=== PATIENT | female | born 1935 | race Caucasian/White ===

== ENCOUNTER 2021-11-21 09:56 | Observation (INO) | payer OTHER, MEDICARE ==
[2021-11-21 12:09] LABS: BASO % 0.4 % (0-2.0); HEMATOCRIT 25.4 % (32.4-45.2); HEMOGLOBIN 8.7 GM/dL (10.7-15.3); LYMPH % 14.4 % (8-40); MCH 31.4 pg (25.7-33.7); MCHC 34.3 g/dl (32.0-36.0); MEAN CELL VOLUME 91.6 fl (80-96); MEAN PLT VOLUME 8.4 fl (7.5-11.1); MONO % 7.3 % (3.8-10.2); NEUT % 75.9 % (42.8-82.8); PLATELET COUNT 248 10^3/uL (134-434); RBC 2.78 M/mm3 (3.60-5.2); RDW 17.2 % (11.6-15.6); WHITE BLOOD COUNT 8.1 K/mm3 (4.0-10.0)
[2021-11-21 12:27] LABS: CALCIUM 11.2 mg/dL (8.5-10.1)
[2021-11-21 12:28] LABS: ALBUMIN 3.1 g/dl (3.4-5.0)
[2021-11-21 12:31] LABS: BLOOD UREA NITROGEN 103.3 mg/dL (7-18)
[2021-11-21 12:32] LABS: BILIRUBIN,TOTAL 0.4 mg/dL (0.2-1); CREATININE 4.4 mg/dL (0.55-1.3); TOT PROT 6.4 g/dl (6.4-8.2)
[2021-11-21] MEDS: SODIUM CHLORIDE 1,000 ML IV SCH (21:35)
[2021-11-21] MEDS: LIDOCAINE PATCH REMOVAL MC SCH (23:11)
[2021-11-21] MEDS: LIDOCAINE 5% TOPICAL PATCH TP SCH (23:11)
[2021-11-21] MEDS: HEPARIN NA (PORCINE) 5,000 UNITS/ML 1ML VIAL SQ SCH (23:12)
[2021-11-22] MEDS: HEPARIN NA (PORCINE) 5,000 UNITS/ML 1ML VIAL SQ SCH ×3 (05:30→21:02)
[2021-11-22] MEDS: SODIUM CHLORIDE 1,000 ML IV SCH ×2 (06:58→18:57)
[2021-11-22 08:43] VITALS: BMI 27.1
[2021-11-22 10:19] LABS: HEMATOCRIT 22.3 % (32.4-45.2); HEMOGLOBIN 7.5 GM/dL (10.7-15.3); MCH 30.6 pg (25.7-33.7); MCHC 33.5 g/dl (32.0-36.0); MEAN CELL VOLUME 91.4 fl (80-96); MEAN PLT VOLUME 8.3 fl (7.5-11.1); PLATELET COUNT 237 10^3/uL (134-434); RBC 2.44 M/mm3 (3.60-5.2); RDW 16.9 % (11.6-15.6); WHITE BLOOD COUNT 6.3 K/mm3 (4.0-10.0)
[2021-11-22] MEDS: ACETAMINOPHEN 325 MG TABLET (FP) PO PRN ×2 (11:10→21:02)
[2021-11-22] MEDS: LIDOCAINE 5% TOPICAL PATCH TP SCH (11:11)
[2021-11-22 11:16] LABS: CHLORIDE 104 mmol/L (98-107); SODIUM 140 mmol/L (136-145)
[2021-11-22 11:19] LABS: CALCIUM 10.5 mg/dL (8.5-10.1)
[2021-11-22 11:20] LABS: ANION GAP 6 MMOL/L (8-16); CO2 30 mmol/L (21-32); GLUCOSE,RANDOM 85 mg/dL (74-106)
[2021-11-22 11:21] LABS: MAGNESIUM 2.7 mg/dL (1.8-2.4)
[2021-11-22 11:23] LABS: CREATININE 4.6 mg/dL (0.55-1.3); IRON SERUM 73 ug/dL (50-175); PHOSPHOROUS 2.9 mg/dL (2.5-4.9)
[2021-11-22 11:24] LABS: TOTAL IRON BINDING CAPACITY 218 ug/dL (250-450)
[2021-11-22 11:35] LABS: ANISOCYTOSIS 0; HELMET CELLS 0; HOWELL-JOLLY BODIES 0; MACROCYTOSIS 0; OVALOCYTE 0; ROULEAU 0; SICKELED CELLS 0; TARGET CELLS 0; TEAR DROP CELLS 0; TOXIC GRANULATION 0
[2021-11-22 11:37] LABS: BLOOD UREA NITROGEN 113.6 mg/dL (7-18)
[2021-11-22] MEDS: ALBUMIN HUMAN 25% 12.5 GM/50 ML VIAL IV SCH ×4 (13:30→15:00)
[2021-11-22] MEDS ORDERED: SODIUM CHLORIDE 250 ML IV PRN (13:57)
[2021-11-22] MEDS ORDERED: EPOETIN ALFA-EPBX 10,000 UNIT/ML VIAL SQ ONE (14:00)
[2021-11-22] MEDS ORDERED: HEPARIN NA (PORCINE) 5,000 UNITS/ML 1ML VIAL IVPUSH ONE (14:00)
[2021-11-22 15:07] LABS: BASO % 0.5 % (0-2.0); EOS % 2.1 % (0-4.5); LYMPH % 15.9 % (8-40); MCH 30.4 pg (25.7-33.7); MCHC 33.5 g/dl (32.0-36.0); MEAN CELL VOLUME 90.9 fl (80-96); MEAN PLT VOLUME 8.3 fl (7.5-11.1); NEUT % 75.5 % (42.8-82.8); PLATELET COUNT 229 10^3/uL (134-434); RBC 2.31 M/mm3 (3.60-5.2); RDW 16.7 % (11.6-15.6)
[2021-11-22] MEDS: LIDOCAINE PATCH REMOVAL MC SCH (21:06)
[2021-11-22] MEDS ORDERED: NIFEdipine E.R. 90 MG TABLET PO ONE (23:00)
[2021-11-23] MEDS: HEPARIN NA (PORCINE) 5,000 UNITS/ML 1ML VIAL SQ SCH ×2 (06:11→17:08)
[2021-11-23 07:11] VITALS: RESP 18
[2021-11-23] MEDS: NIFEdipine E.R. 90 MG TABLET PO SCH ×2 (10:15→10:17)
[2021-11-23] MEDS: LIDOCAINE 5% TOPICAL PATCH TP SCH (10:15)
[2021-11-23 11:53] LABS: BASO % 0.7 % (0-2.0); EOS % 1.6 % (0-4.5); HEMATOCRIT 26.3 % (32.4-45.2); HEMOGLOBIN 8.8 GM/dL (10.7-15.3); LYMPH % 17.9 % (8-40); MCH 29.6 pg (25.7-33.7); MCHC 33.3 g/dl (32.0-36.0); MEAN PLT VOLUME 8.5 fl (7.5-11.1); MONO % 8.6 % (3.8-10.2); NEUT % 71.2 % (42.8-82.8); PLATELET COUNT 234 10^3/uL (134-434); RBC 2.96 M/mm3 (3.60-5.2); RDW 18.7 % (11.6-15.6); WHITE BLOOD COUNT 5.8 K/mm3 (4.0-10.0)
[2021-11-23 12:11] LABS: ALBUMIN 3.1 g/dl (3.4-5.0)
[2021-11-23 12:17] LABS: BILIRUBIN,TOTAL 0.3 mg/dL (0.2-1); CREATININE 2.2 mg/dL (0.55-1.3); TOT PROT 6.2 g/dl (6.4-8.2)
[2021-11-23 12:23] LABS: BLOOD UREA NITROGEN 38.5 mg/dL (7-18)
[2021-11-23] MEDS ORDERED: SODIUM CHLORIDE 250 ML IV PRN (13:14)
[2021-11-23] MEDS: HEPARIN NA (PORCINE) 5,000 UNITS/ML 1ML VIAL IVPUSH SCH ×3 (13:25→15:25)
[2021-11-23 13:36] VITALS: TEMP 98.3
[2021-11-23] MEDS ORDERED: EPOETIN ALFA-EPBX 10,000 UNIT/ML VIAL SQ ONE (14:00)
[2021-11-23] MEDS: ALBUMIN HUMAN 25% 12.5 GM/50 ML VIAL IV SCH ×2 (15:28→16:39)
[2021-11-23] MEDS ORDERED: AMINO ACIDS/PROTEIN HYDROLYS 30 ML LIQUID.PKT PO SCH (17:30)
[2021-11-23 18:56] VITALS: BP 154/50; PULSE 72
[2021-11-23] MEDS ORDERED: NIFEdipine E.R. 90 MG TABLET PO ONE (22:25)
== END 2021-11-23 19:54 ==
LOC: JER 09:56 → JERBED 15:54 → J5S 17:51
PROVIDERS: ADMIT Internal Medicine; ATTEND Internal Medicine
PROC: 3E023GC Introduction of Other Therapeutic Substance into Muscle, Percutaneous Approach (ICD-10-PCS; principal; 2021-11-21)
PROC: 3E033GC Introduction of Other Therapeutic Substance into Peripheral Vein, Percutaneous Approach (ICD-10-PCS; 2021-11-21)
PROC: 30233N1 Transfusion of Nonautologous Red Blood Cells into Peripheral Vein, Percutaneous Approach (ICD-10-PCS; 2021-11-21)
DX: I13.11 Hypertensive heart and chronic kidney disease without heart failure, with stage 5 chronic kidney disease, or end stage renal disease (principal); Z91.15 Patient's noncompliance with renal dialysis; D64.9 Anemia, unspecified; Z93.1 Gastrostomy status; E03.9 Hypothyroidism, unspecified; E11.22 Type 2 diabetes mellitus with diabetic chronic kidney disease; Z99.2 Dependence on renal dialysis
CPT/HCPCS: 36415; 36430; 71045-TC-FY; 80048; 80053; 82272; 82728; 83540; 83550; 83735; 84100; 85025; 85027; 86803; 86850; 86900; 86901; 86922; 87086; 87340; 87517; 93005; 93010; 96372; 96374; 99285-25; C9803-CS; G0378; J1644; P9047; P9058; Q5106; U0003; U0005

== ENCOUNTER 2022-07-02 11:28 | Inpatient (IN) | payer OTHER, MEDICARE ==
[2022-07-02 12:38] LABS: HEMATOCRIT 30.2 % (32.4-45.2); HEMOGLOBIN 10.6 GM/dL (10.7-15.3); MCHC 35.1 g/dl (32.0-36.0); MEAN CELL VOLUME 102.7 fl (80-96); MEAN PLT VOLUME 8.9 fl (7.5-11.1); PLATELET COUNT 214 10^3/uL (134-434); RBC 2.94 M/mm3 (3.60-5.2); RDW 15.4 % (11.6-15.6); WHITE BLOOD COUNT 8.8 K/mm3 (4.0-10.0)
[2022-07-02 12:42] LABS: VENOUS BASE EXCESS -2.3 mmol/L (-2-2); VENOUS O2 SATURATION 25.4 % (70-80); VENOUS PH 7.305 (7.310-7.410)
[2022-07-02 13:02] LABS: CHLORIDE 98 mmol/L (98-107); POTASSIUM 5.4 mmol/L (3.5-5.1); SODIUM 135 mmol/L (136-145)
[2022-07-02 13:05] LABS: ALBUMIN 3.6 g/dl (3.4-5.0); CALCIUM 10.6 mg/dL (8.5-10.1); GLUCOSE,RANDOM 149 mg/dL (74-106)
[2022-07-02 13:08] LABS: ANISOCYTOSIS 1+; CREATININE 5.1 mg/dL (0.55-1.3); MACROCYTOSIS 1+; PHOSPHOROUS 3.8 mg/dL (2.5-4.9); SGOT/AST 32 U/L (15-37); SGPT/ALT 25 U/L (13-61)
[2022-07-02 13:09] LABS: ANION GAP 10 MMOL/L (8-16); CO2 26 mmol/L (21-32); MAGNESIUM 2.6 mg/dL (1.8-2.4)
[2022-07-02 13:10] LABS: BILIRUBIN,TOTAL 0.4 mg/dL (0.2-1)
[2022-07-02 13:11] LABS: ALK PHOS 77 U/L (45-117)
[2022-07-02 13:21] LABS: BLOOD UREA NITROGEN 105.2 mg/dL (7-18)
[2022-07-02] MEDS ORDERED: SODIUM CHLORIDE 250 ML IV PRN (15:54)
[2022-07-02 19:00] VITALS: BMI 28.0
[2022-07-02] MEDS ORDERED: POLYETHYLENE GLYCOL (HEALTHYLAX) 3350 17 GM PACKET PO PRN (19:35)
[2022-07-02] MEDS ORDERED: ACETAMINOPHEN 325 MG TABLET (FP) PO PRN (19:35)
[2022-07-03 09:22] LABS: HEMATOCRIT 27.1 % (32.4-45.2); HEMOGLOBIN 9.2 GM/dL (10.7-15.3); MCH 34.8 pg (25.7-33.7); MCHC 34.1 g/dl (32.0-36.0); MEAN CELL VOLUME 102.1 fl (80-96); MEAN PLT VOLUME 8.2 fl (7.5-11.1); PLATELET COUNT 179 10^3/uL (134-434); RBC 2.66 M/mm3 (3.60-5.2); RDW 15.6 % (11.6-15.6); WHITE BLOOD COUNT 6.9 K/mm3 (4.0-10.0)
[2022-07-03 09:43] LABS: CHLORIDE 100 mmol/L (98-107); POTASSIUM 4.9 mmol/L (3.5-5.1); SODIUM 136 mmol/L (136-145)
[2022-07-03 09:44] LABS: CALCIUM 9.5 mg/dL (8.5-10.1)
[2022-07-03 09:45] LABS: ANION GAP 14 MMOL/L (8-16); CO2 22 mmol/L (21-32); GLUCOSE,RANDOM 160 mg/dL (74-106)
[2022-07-03 09:48] LABS: CREATININE 5.4 mg/dL (0.55-1.3)
[2022-07-03] MEDS ORDERED: SODIUM ZIRCONIUM CYCLOSILICATE (LOKELMA) 5 GM PACKET PO SCH (10:00)
[2022-07-03] MEDS ORDERED: HEPARIN NA (PORCINE) 5,000 UNITS/ML 1ML VIAL IVPUSH ONE (10:00)
[2022-07-03 10:18] LABS: BLOOD UREA NITROGEN 108.1 mg/dL (7-18)
[2022-07-05 06:31] VITALS: TEMP 98.2
[2022-07-05 10:11] LABS: HEMATOCRIT 27.1 % (32.4-45.2); HEMOGLOBIN 9.5 GM/dL (10.7-15.3); MCH 35.9 pg (25.7-33.7); MEAN CELL VOLUME 102.4 fl (80-96); MEAN PLT VOLUME 8.7 fl (7.5-11.1); PLATELET COUNT 177 10^3/uL (134-434); RBC 2.64 M/mm3 (3.60-5.2); RDW 15.6 % (11.6-15.6); WHITE BLOOD COUNT 6.7 K/mm3 (4.0-10.0)
[2022-07-05 10:32] LABS: POTASSIUM 4.2 mmol/L (3.5-5.1)
[2022-07-05 10:38] LABS: CALCIUM 8.7 mg/dL (8.5-10.1)
[2022-07-05 10:42] LABS: CREATININE 3.8 mg/dL (0.55-1.3)
[2022-07-05 10:54] LABS: BLOOD UREA NITROGEN 57.6 mg/dL (7-18)
[2022-07-05] MEDS ORDERED: SODIUM CHLORIDE 250 ML IV PRN (11:48)
[2022-07-05] MEDS ORDERED: EPOETIN ALFA-EPBX 4,000 UNIT, EPOETIN ALFA-EPBX 3,000 UNIT IVPUSH ONE (12:00)
[2022-07-05] MEDS ORDERED: EPOETIN ALFA-EPBX 4,000 UNIT/ML VIAL SQ ONE (14:34)
[2022-07-05 17:11] VITALS: RESP 18
[2022-07-05 17:21] VITALS: BP 151/65; PULSE 80
== END 2022-07-05 14:49 | DRG 308 ==
LOC: JER 11:28 → JERBED 13:44 → J4W 15:17
PROVIDERS: ADMIT Internal Medicine; ATTEND Internal Medicine
PROC: 5A1D70Z Performance of Urinary Filtration, Intermittent, Less than 6 Hours Per Day (ICD-10-PCS; principal; 2022-07-05)
DX: R00.1 Bradycardia, unspecified (principal); N18.6 End stage renal disease; I12.0 Hypertensive chronic kidney disease with stage 5 chronic kidney disease or end stage renal disease; D63.1 Anemia in chronic kidney disease; Z99.2 Dependence on renal dialysis
CPT/HCPCS: 36415; 71045-TC-FY; 80048; 80053; 82803; 82962; 83735; 84100; 84439; 84443; 84480; 85025; 85027; 86803; 87340; 93005; 93010; 93306-TC; 99285-25; C9803-CS; J1644; Q5106; U0003; U0005

== ENCOUNTER 2022-10-24 14:33 | Inpatient (IN) | payer OTHER, MEDICARE ==
[2022-10-24 15:01] VITALS: BMI 28.5
[2022-10-24] MEDS ORDERED: morphine CARPU-JECT 2 MG/1 ML DISP.SYRIN IVPUSH ONE (15:53)
[2022-10-24] MEDS ORDERED: ACETAMINOPHEN 500 MG TABLET (FP) PO ONE (18:31)
[2022-10-24] MEDS ORDERED: ACETAMINOPHEN 325 MG TABLET (FP) ONE (18:34)
[2022-10-24 18:38] LABS: BASO % 0.9 % (0-2.0); EOS % 1.3 % (0-4.5); HEMOGLOBIN 8.5 GM/dL (10.7-15.3); MCH 33.2 pg (25.7-33.7); MCHC 34.1 g/dl (32.0-36.0); MEAN CELL VOLUME 97.3 fl (80-96); MEAN PLT VOLUME 7.6 fl (7.5-11.1); MONO % 6.1 % (3.8-10.2); NEUT % 78.7 % (42.8-82.8); PLATELET COUNT 251 10^3/uL (134-434); RBC 2.57 M/mm3 (3.60-5.2); RDW 15.9 % (11.6-15.6); WHITE BLOOD COUNT 10.2 K/mm3 (4.0-10.0)
[2022-10-24 19:07] LABS: CALCIUM 8.6 mg/dL (8.5-10.1)
[2022-10-24 19:08] LABS: ALBUMIN 3.1 g/dl (3.4-5.0)
[2022-10-24 19:11] LABS: CREATININE 2.9 mg/dL (0.55-1.3)
[2022-10-24 19:12] LABS: BILIRUBIN,TOTAL 0.4 mg/dL (0.2-1); TOT PROT 6.4 g/dl (6.4-8.2)
[2022-10-24] MEDS ORDERED: DOCUSATE SODIUM 100 MG CAPSULE (FP) PO PRN (21:08)
[2022-10-24] MEDS ORDERED: ACETAMINOPHEN 325 MG TABLET (FP) PO PRN (21:08)
[2022-10-24] MEDS ORDERED: DOCUSATE SODIUM 100 MG CAPSULE (FP) PO ONE (21:34)
[2022-10-24] MEDS: INSULIN SLIDING SCALE (NOVOLOG) 1 VIAL SQ SCH (21:39)
[2022-10-25] MEDS ORDERED: SENNOSIDES/DOCUSATE COMBO (SENNA PLUS) TABLET (UD) PO PRN (05:05)
[2022-10-25] MEDS: INSULIN SLIDING SCALE (NOVOLOG) 1 VIAL SQ SCH ×4 (08:49→21:20)
[2022-10-25] MEDS: SERTRALINE HCL 50 MG TABLET (FP) PO SCH (09:24)
[2022-10-25] MEDS: SIMETHICONE 80 MG TAB.CHEW (FP) PO SCH (09:25)
[2022-10-25] MEDS: CHOLECALCIFEROL (VIT D3) 1,000 UNIT (25 MCG) TABLET PO SCH (09:25)
[2022-10-25] MEDS: NIFEdipine E.R. 90 MG TABLET PO SCH (09:25)
[2022-10-25] MEDS: VITAMIN B COMP W-C 1 EA TABLET (NEPHRO-VITE) PO SCH (09:25)
[2022-10-25] MEDS ORDERED: SODIUM CHLORIDE 250 ML IV PRN (15:56)
[2022-10-25] MEDS ORDERED: PNEUMOC 20-VAL CONJ-DIP CRM/PF 0.5 ML SYRINGE IM ONE (17:00)
[2022-10-26] MEDS: INSULIN SLIDING SCALE (NOVOLOG) 1 VIAL SQ SCH ×4 (06:19→21:31)
[2022-10-26] MEDS ORDERED: LORazepam 2 MG/ML SDV VIAL IM ONE (10:00)
[2022-10-26] MEDS ORDERED: LIDOCAINE 2.5%/PRILOCAINE 2.5% (5 Gram/TUBE) TP ONE (11:15)
[2022-10-26] MEDS ORDERED: LORazepam 2 MG/ML SDV VIAL IVPUSH ONE (11:39)
[2022-10-26] MEDS ORDERED: EPOETIN ALFA-EPBX 10,000 UNIT/ML VIAL IVPUSH ONE (12:00)
[2022-10-26] MEDS: CHOLECALCIFEROL (VIT D3) 1,000 UNIT (25 MCG) TABLET PO SCH (15:57)
[2022-10-26] MEDS: SERTRALINE HCL 50 MG TABLET (FP) PO SCH (15:57)
[2022-10-26] MEDS: VITAMIN B COMP W-C 1 EA TABLET (NEPHRO-VITE) PO SCH (15:57)
[2022-10-26] MEDS: NIFEdipine E.R. 90 MG TABLET PO SCH (15:57)
[2022-10-26] MEDS: SIMETHICONE 80 MG TAB.CHEW (FP) PO SCH (15:57)
[2022-10-26] MEDS: LORazepam 2 MG/ML SDV VIAL IVPUSH SCH ×2 (16:09→21:30)
[2022-10-26] MEDS: CEFTRIAXONE 1 GM in DEXTROSE 5%-WATER - 50 ML IVPB SCH (18:09)
[2022-10-27] MEDS: LORazepam 2 MG/ML SDV VIAL IVPUSH SCH ×4 (03:30→21:34)
[2022-10-27] MEDS: INSULIN SLIDING SCALE (NOVOLOG) 1 VIAL SQ SCH ×4 (06:11→21:38)
[2022-10-27] MEDS: VITAMIN B COMP W-C 1 EA TABLET (NEPHRO-VITE) PO SCH (09:44)
[2022-10-27] MEDS: NIFEdipine E.R. 90 MG TABLET PO SCH (09:44)
[2022-10-27] MEDS: CHOLECALCIFEROL (VIT D3) 1,000 UNIT (25 MCG) TABLET PO SCH (09:44)
[2022-10-27] MEDS: SERTRALINE HCL 50 MG TABLET (FP) PO SCH (09:44)
[2022-10-27] MEDS: SIMETHICONE 80 MG TAB.CHEW (FP) PO SCH (09:45)
[2022-10-27] MEDS: CEFTRIAXONE 1 GM in DEXTROSE 5%-WATER - 50 ML IVPB SCH (09:45)
[2022-10-27 17:56] VITALS: RESP 18
[2022-10-28] MEDS: LORazepam 2 MG/ML SDV VIAL IVPUSH SCH ×4 (02:03→21:12)
[2022-10-28] MEDS: INSULIN SLIDING SCALE (NOVOLOG) 1 VIAL SQ SCH ×4 (06:12→21:12)
[2022-10-28] MEDS: CEFTRIAXONE 1 GM in DEXTROSE 5%-WATER - 50 ML IVPB SCH (10:01)
[2022-10-28] MEDS: SERTRALINE HCL 50 MG TABLET (FP) PO SCH (10:02)
[2022-10-28] MEDS: VITAMIN B COMP W-C 1 EA TABLET (NEPHRO-VITE) PO SCH (10:02)
[2022-10-28] MEDS: CHOLECALCIFEROL (VIT D3) 1,000 UNIT (25 MCG) TABLET PO SCH (10:02)
[2022-10-28] MEDS: SIMETHICONE 80 MG TAB.CHEW (FP) PO SCH (10:02)
[2022-10-28] MEDS: NIFEdipine E.R. 90 MG TABLET PO SCH (10:28)
[2022-10-28] MEDS ORDERED: SODIUM CHLORIDE 250 ML IV PRN (15:43)
[2022-10-29] MEDS: LORazepam 2 MG/ML SDV VIAL IVPUSH SCH ×2 (02:50→09:52)
[2022-10-29] MEDS: INSULIN SLIDING SCALE (NOVOLOG) 1 VIAL SQ SCH ×2 (06:04→13:10)
[2022-10-29] MEDS ORDERED: EPOETIN ALFA-EPBX 10,000 UNIT/ML VIAL IVPUSH ONE (08:15)
[2022-10-29 08:37] LABS: HEMATOCRIT 21.4 % (32.4-45.2); HEMOGLOBIN 7.4 GM/dL (10.7-15.3); MCH 33.4 pg (25.7-33.7); MCHC 34.5 g/dl (32.0-36.0); MEAN CELL VOLUME 96.7 fl (80-96); MEAN PLT VOLUME 7.6 fl (7.5-11.1); PLATELET COUNT 226 10^3/uL (134-434); RBC 2.22 M/mm3 (3.60-5.2); RDW 15.9 % (11.6-15.6); WHITE BLOOD COUNT 5.9 K/mm3 (4.0-10.0)
[2022-10-29 09:12] LABS: POTASSIUM 3.9 mmol/L (3.5-5.1)
[2022-10-29 09:14] LABS: CALCIUM 8.3 mg/dL (8.5-10.1)
[2022-10-29 09:15] LABS: BLOOD UREA NITROGEN 39.7 mg/dL (7-18)
[2022-10-29 09:17] LABS: CREATININE 4.7 mg/dL (0.55-1.3)
[2022-10-29 09:19] LABS: BILIRUBIN,TOTAL 0.2 mg/dL (0.2-1); TOT PROT 5.7 g/dl (6.4-8.2)
[2022-10-29] MEDS: SERTRALINE HCL 50 MG TABLET (FP) PO SCH (10:00)
[2022-10-29] MEDS: SIMETHICONE 80 MG TAB.CHEW (FP) PO SCH (10:00)
[2022-10-29] MEDS: CHOLECALCIFEROL (VIT D3) 1,000 UNIT (25 MCG) TABLET PO SCH (10:00)
[2022-10-29] MEDS: CEFTRIAXONE 1 GM in DEXTROSE 5%-WATER - 50 ML IVPB SCH (10:00)
[2022-10-29] MEDS: VITAMIN B COMP W-C 1 EA TABLET (NEPHRO-VITE) PO SCH (10:00)
[2022-10-29] MEDS: NIFEdipine E.R. 90 MG TABLET PO SCH (10:00)
[2022-10-29 14:27] VITALS: BP 129/78; PULSE 77; TEMP 99.4
== END 2022-10-29 15:17 | DRG 314 ==
LOC: JER 14:33 → JERBED 10-25 00:52 → J5S 10-25 08:01 → OBSVTOIN 10-25 14:02 → J5S 10-25 19:06
PROVIDERS: ADMIT Internal Medicine; ATTEND Internal Medicine
PROC: 5A1D70Z Performance of Urinary Filtration, Intermittent, Less than 6 Hours Per Day (ICD-10-PCS; principal; 2022-10-26)
PROC: 5A1D70Z Performance of Urinary Filtration, Intermittent, Less than 6 Hours Per Day (ICD-10-PCS; 2022-10-29)
DX: T82.848A Pain due to vascular prosthetic devices, implants and grafts, initial encounter (principal); N18.6 End stage renal disease; I12.0 Hypertensive chronic kidney disease with stage 5 chronic kidney disease or end stage renal disease; R00.1 Bradycardia, unspecified; E11.22 Type 2 diabetes mellitus with diabetic chronic kidney disease; K59.00 Constipation, unspecified; D64.9 Anemia, unspecified; Y83.8 Other surgical procedures as the cause of abnormal reaction of the patient, or of later complication, without mention of misadventure at the time of the procedure; Z99.2 Dependence on renal dialysis
CPT/HCPCS: 36415; 71275-TC; 73030-TC-LT-FY; 73206-TC-RT; 80053; 82962; 85025; 85027; 86704; 86803; 87040; 87340; 87635; 90677; 93005; 93010; 93971; G0378; Q5106; Q9967

== ENCOUNTER 2023-10-04 11:44 | Inpatient (IN) | payer OTHER, MEDICARE ==
[2023-10-04 12:13] VITALS: BMI 29.2
[2023-10-04] MEDS ORDERED: SODIUM CHLORIDE 250 ML IV PRN (13:43)
[2023-10-04 16:00] LABS: HEMATOCRIT 30.9 % (32.4-45.2); HEMOGLOBIN 10.3 GM/dL (10.7-15.3); MCH 31.6 pg (25.7-33.7); MCHC 33.3 g/dl (32.0-36.0); MEAN CELL VOLUME 94.8 fl (80-96); MEAN PLT VOLUME 7.6 fl (7.5-11.1); PLATELET COUNT 285 10^3/uL (134-434); RBC 3.26 M/mm3 (3.60-5.2); RDW 15.7 % (11.6-15.6); WHITE BLOOD COUNT 7.1 K/mm3 (4.0-10.0)
[2023-10-04 16:09] LABS: INR 0.91 (0.83-1.09); PROTHROMBIN TIME (PATIENT) 10.5 SEC (9.7-13.0)
[2023-10-04 16:11] LABS: ACTIVATED PTT 30.3 SECONDS (25.2-36.5)
[2023-10-04 16:33] LABS: POTASSIUM 4.3 mmol/L (3.5-5.1)
[2023-10-04 16:36] LABS: CALCIUM 8.2 mg/dL (8.5-10.1)
[2023-10-04 16:37] LABS: ALBUMIN 2.9 g/dl (3.4-5.0); BLOOD UREA NITROGEN 56.9 mg/dL (7-18); MAGNESIUM 2.2 mg/dL (1.8-2.4)
[2023-10-04 16:40] LABS: CREATININE 4.2 mg/dL (0.55-1.3); PHOSPHOROUS 5.5 mg/dL (2.5-4.9)
[2023-10-04 16:41] LABS: BILIRUBIN,TOTAL 0.3 mg/dL (0.2-1)
[2023-10-04 16:42] LABS: TOT PROT 5.8 g/dl (6.4-8.2)
[2023-10-04] MEDS ORDERED: SENNOSIDES 8.6MG TABLET (FP) PO PRN (17:15)
[2023-10-04] MEDS ORDERED: SIMETHICONE 80 MG TAB.CHEW (FP) PO PRN (17:15)
[2023-10-04] MEDS ORDERED: DOCUSATE SODIUM 100 MG CAPSULE (FP) PO PRN (17:15)
[2023-10-04] MEDS: MELATONIN 5 MG TABLETS PO PRN (21:54)
[2023-10-04] MEDS: LACTOBACILLUS ACIDOPHILUS 1 TABLET PO SCH (21:54)
[2023-10-05] MEDS: REPAGLINIDE 0.5 MG TABLET (FP) PO SCH (06:02)
[2023-10-05] MEDS: SERTRALINE HCL 50 MG TABLET (FP) PO SCH (10:11)
[2023-10-05] MEDS: NIFEdipine E.R 60 MG TABLET PO SCH (10:11)
[2023-10-05] MEDS: VITAMIN B COMP W-C 1 EA TABLET (NEPHRO-VITE) PO SCH (10:11)
[2023-10-05] MEDS: CHOLECALCIFEROL (VIT D3) 1,000 UNIT (25 MCG) TABLET PO SCH (10:11)
[2023-10-05] MEDS: POLYETHYLENE GLYCOL (HEALTHYLAX) 3350 17 GM PACKET PO SCH (10:11)
[2023-10-05] MEDS: LIDOCAINE 5% TOPICAL PATCH TP SCH (12:46)
[2023-10-05] MEDS: ACETAMINOPHEN 325 MG TABLET (FP) PO PRN (21:40)
[2023-10-05] MEDS: LIDOCAINE PATCH REMOVAL MC SCH (22:24)
[2023-10-07] MEDS: LIDOCAINE 2.5%/PRILOCAINE 2.5% 30 GRAM TUBE TP ONE (07:08)
[2023-10-07] MEDS ORDERED: SODIUM CHLORIDE 250 ML IV PRN (08:13)
[2023-10-07] MEDS: EPOETIN ALFA-EPBX 4,000 UNIT/ML VIAL SQ ONE (09:41)
[2023-10-07 09:59] LABS: HEMATOCRIT 28.4 % (32.4-45.2); HEMOGLOBIN 9.8 GM/dL (10.7-15.3); MCH 32.2 pg (25.7-33.7); MCHC 34.6 g/dl (32.0-36.0); MEAN PLT VOLUME 7.6 fl (7.5-11.1); PLATELET COUNT 229 10^3/uL (134-434); RBC 3.05 M/mm3 (3.60-5.2); RDW 15.1 % (11.6-15.6); WHITE BLOOD COUNT 4.6 K/mm3 (4.0-10.0)
[2023-10-07 10:13] LABS: BASO % 0.8 % (0-2.0); EOS % 1.8 % (0-4.5); HEMATOCRIT 29.5 % (32.4-45.2); HEMOGLOBIN 9.8 GM/dL (10.7-15.3); LYMPH % 24.9 % (8-40); MCH 31.1 pg (25.7-33.7); MCHC 33.1 g/dl (32.0-36.0); MEAN PLT VOLUME 7.5 fl (7.5-11.1); MONO % 8.8 % (3.8-10.2); NEUT % 63.7 % (42.8-82.8); PLATELET COUNT 236 10^3/uL (134-434); RBC 3.14 M/mm3 (3.60-5.2); RDW 15.3 % (11.6-15.6); WHITE BLOOD COUNT 4.7 K/mm3 (4.0-10.0)
[2023-10-07 10:20] LABS: POTASSIUM 4.4 mmol/L (3.5-5.1)
[2023-10-07 10:22] LABS: ALBUMIN 2.7 g/dl (3.4-5.0); BLOOD UREA NITROGEN 45.3 mg/dL (7-18); CALCIUM 8.3 mg/dL (8.5-10.1)
[2023-10-07 10:28] LABS: BILIRUBIN,TOTAL 0.4 mg/dL (0.2-1); TOT PROT 5.5 g/dl (6.4-8.2)
[2023-10-07] MEDS: metroNIDAZOLE 250 MG TABLET PO SCH (16:13)
[2023-10-07 18:53] VITALS: RESP 18
[2023-10-08] MEDS ORDERED: SODIUM CHLORIDE 250 ML IV PRN (12:15)
[2023-10-08 16:02] VITALS: BP 136/78; PULSE 73; TEMP 98.2
[2023-10-09] MEDS ORDERED: EPOETIN ALFA-EPBX 4,000 UNIT/ML VIAL SQ ONE (12:15)
== END 2023-10-08 18:27 | DRG 682 ==
LOC: JER 11:44 → JERBED 15:01 → J5S 18:42 → OBSVTOIN 10-06 10:35
PROVIDERS: ADMIT Internal Medicine; ATTEND Internal Medicine
PROC: 5A1D70Z Performance of Urinary Filtration, Intermittent, Less than 6 Hours Per Day (ICD-10-PCS; principal; 2023-10-04)
PROC: 5A1D70Z Performance of Urinary Filtration, Intermittent, Less than 6 Hours Per Day (ICD-10-PCS; 2023-10-07)
DX: I12.0 Hypertensive chronic kidney disease with stage 5 chronic kidney disease or end stage renal disease (principal); N18.6 End stage renal disease; E11.22 Type 2 diabetes mellitus with diabetic chronic kidney disease; Z99.2 Dependence on renal dialysis; D64.9 Anemia, unspecified; E78.5 Hyperlipidemia, unspecified
CPT/HCPCS: 36415; 71045-TC-FY; 80048; 80053; 82962; 83735; 84100; 85025; 85027; 85610; 85730; 86850; 86900; 86901; 87045; 87046; 87186; 87205; 87340; 87493; 87517; 87635; 93005; 93010; 99285-25; G0378; Q5106